=== PATIENT | female | born 1955 | race African-American/Black ===

== ENCOUNTER 2017-07-31 07:58 | Observation (INO) ==
[2017-07-31] MEDS ORDERED: 0.9 % Sodium Chloride 1,000 ML IVC ONE (08:09)
--- NOTE | 2017-07-31 08:14 | Emergency Department Note ---
Disposition Clinical Impression: TIA (transient ischemic attack) Qualifiers: Transient cerebral ischemia type: unspecified Qualified Code(s): G45.9 - Transient cerebral ischemic attack, unspecified Disposition: Transfer Other Condition: Fair Time of Disposition: 11:44 Neuro HPI - General Chief Complaint: ED Neuro Symptoms/Deficit Stated Complaint: neuro Time Seen by Provider: 07/31/17 08:08 Source: patient Mode of arrival: wheelchair Limitations: no limitations Nursing Notes Reviewed: Yes Vital Signs Reviewed: Yes - History of Present Illness HPI Narrative: Patient presents to the ED with the chief complaint of possible stroke. Patient states that she never goes to Dr. so she has no known medical problems, no previous history of CVA. States that she felt fine yesterday. She went to bed at 12 AM and woke up at 7 AM this morning. She reports that when she woke up, her vision was blurry and she just did not feel right. Even after putting her glasses on her vision improved, but still just did not feel right. She states that she got up to let her dogs out and she felt very off balance and disoriented. She was speaking to a family member and states that she knew what she wanted to say but she just could not get the words out. She did not have any focal numbness or weakness. She states that as of arriving to the ER that her symptoms are now gone and she wants to leave. However, family members with her, state that they are concerned she may have had a stroke and they would like her evaluated. Denies any fever, chills, chest pain, shortness of breath, abdominal pain, nausea, vomiting, diarrhea, rash. No changes in vision currently. Did report a mild headache yesterday but that resolved last night. - Related Data Home Medications: Home Medications Medication Instructions Recorded Confirmed Calcium Carbonate [Calcium] 500 mg PO DAILY 07/31/17 07/31/17 Cyanocobalamin (Vitamin B-12) 1,000 mcg PO DAILY 07/31/17 07/31/17 [Vitamin B12] Magnesium 30 mg PO DAILY 07/31/17 07/31/17 Allergies/Adverse Reactions: Allergies Allergy/AdvReac Type Severity Reaction Status Date / Time No Known Allergies Allergy Verified 07/31/17 09:55 Review of Systems: As reviewed in my history of present illness, otherwise negative Review of Systems: As Per HPI Constitutional: Reports: as per HPI Eyes: Reports: as per HPI ENT ED: Reports: as per HPI Past Medical History - Past Medical History Attestation: Yes The following information was validated with the patient. Source: patient Medical history: Reports: no medical history Psychiatric history: Reports: depression - Social History Smoking Status: Current every day smoker Smokeless Tobacco Status: No Alcohol use: Reports: none Drug use: Reports: none Physical Exam - General Limitations: no limitations General appearance: alert, in no apparent distress - Head Head exam: atraumatic, normocephalic, normal inspection - Eye Eye exam: Present: normal appearance, PERRL, EOMI. Absent: nystagmus - ENT ENT exam: normal exam, normal oropharynx, mucous membranes moist - Neck Neck exam: Present: normal inspection, full ROM, trachea midline - Chest Chest inspection: Present: normal inspection, symmetric chest wall rise - Respiratory Respiratory exam: Present: normal lung sounds bilaterally - Cardiovascular Cardiovascular exam: Present: regular rate, normal rhythm, normal heart sounds - Abdominal Exam Abdominal exam: Present: soft, Non-Tender. Absent: tenderness, distention, guarding, rebound, rigidity - Extremities Exam Extremities exam: Present: normal inspection, full ROM, normal capillary refill. Absent: tenderness, pedal edema - Neurological Exam Neurological exam: Present: alert, oriented X3, CN II-XII intact - Expanded Neurological Exam Patient oriented to: Present: person, place, time Speech: Present: fluid speech Cranial nerves: EOM function (II, III, IV, ): Normal, facial sensation (V): Normal, facial palsy (VII): Normal, spinal accessory function (XI): Normal, tongue deviation (XII): Normal Cerebellar function: finger to nose: Normal Cerebellar function: normal gait Motor strength - LUE: 5/5 Motor strength - RUE: 5/5 Motor strength - LLE: 5/5 Motor strength - RLE: 5/5 Upper motor neuron exam: florinda neglect: Absent bilaterally, pronator drift: Absent bilaterally, sensory extinction: Absent bilaterally Sensory exam upper extremity: light touch: Normal Sensory exam lower extremity: light touch: Normal Coma Scale Eye Opening: Spontaneous Coma Scale Motor Response: Obeys Commands Coma Scale Verbal Response: Oriented Coma Scale Total: 15 - Psychiatric Psychiatric exam: Present: normal affect, normal mood - Skin Skin exam: Present: warm, dry, intact, normal color Course Course Narrative: Patient presenting with TIA symptoms, completely resolved upon arrival. We will get a head CT in full workup. - Reevaluation(s) Reevaluation #1: Patient's head CT did not show acute stroke, chronic changes. Admitted to the hospitalist service. Reevaluation #2: Nursing staff was repeating [place] and states that the patient now has an age of 1 for left arm and left leg drift and when she sits up, feels very off balance and woozy. I contacted [facility] stroke neurologist and they did think that activating a stroke alert would be beneficial at this point and we will get him a stroke robot to see if the patient would be a TPA candidate since her symptoms did not fully resolve and now are returning as of what we are now saying is 10 AM, but has been less than 1 hour ago. This was discussed with the patient and family and they are agreeable with plan. stroke alert called. Time: 10:10 Reevaluation #3: [facility] on the stroke robot and the patient's symptoms had resolved. They did not recommend TPA, but did recommend further workup and imaging such as CT angiography of the head, neck, and then MRI. This was discussed with the family and they elected to be transferred to [facility] Vital Signs Temperature 98.0 F 07/31/17 07:59 Pulse Rate 103 07/31/17 07:59 Respiratory Rate 18 07/31/17 07:59 Blood Pressure 167/84 07/31/17 07:59 O2 Sat by Pulse Oximetry 95 07/31/17 07:59 Temperature 98.0 F 07/31/17 07:59 Pulse Rate 73 07/31/17 11:36 Respiratory Rate 17 07/31/17 11:36 Blood Pressure 161/79 07/31/17 11:36 O2 Sat by Pulse Oximetry 96 07/31/17 11:32 Oxygen Delivery Oxygen Delivery Room Air Neuro Symptoms/Deficit - Medical Records Medical records reviewed: Yes I reviewed the patient's medical records. - Lab Data Lab results reviewed: Yes I reviewed the patient's lab results. Result diagrams: 07/31/17 08:42 07/31/17 08:42 Lab Results 07/31/17 07/31/17 07/31/17 Range/Units 08:08 08:30 08:42 WBC 10.1 (4.3-11.1) K/mcL RBC 5.06 H (3.82-4.97) M/mcL Hgb 14.7 (11.5-15.4) g/dL Hct 43.5 (35.3-44.9) % MCV 86.0 (83.0-100.0) fL MCH 29.1 (28.0-33.3) pg MCHC 33.8 (31.6-35.5) g/dL RDW 12.2 (11.5-14.5) % Plt Count 257 (140-400) K/mcL MPV 9.2 L (9.4-12.4) fL Immature Gran % 0.4 (0-4) % Seg Neutrophils % 72.4 % Lymphocytes % 18.8 % Monocytes % 6.1 % Eosinophils % 1.5 % Basophils % 0.8 % Neutrophils # 7.3 (1.6-8.9) K/mcL Lymphocytes # 1.9 (0.6-4.6) K/mcL Monocytes # 0.6 (0.0-1.3) K/mcL Eosinophils # 0.2 (0.0-0.6) K/mcL Basophils # 0.1 (0.0-0.2) K/mcL PT (9.4-12.1) Seconds INR APTT (26.0-36.0) Seconds Sodium (136-145) mEq/L Potassium (3.5-5.1) mEq/L Chloride (98-107) mEq/L Carbon Dioxide (23-29) mEq/L BUN (8-23) mg/dL Creatinine (0.60-1.20) mg/dL Est GFR ( Amer) (> 60) Est GFR (Non-Af Amer) (> 60) BUN/Creatinine Ratio (6-26) Glucose (70-105) mg/dL POC Glucose 187 H (70-99) mg/dL Calculated Osmolality (280-300) Calcium (8.6-10.3) mg/dL Troponin I (< 0.04) ng/mL Urine Color Yellow (Yellow) Urine Clarity Cloudy A (Clear) Urine pH 6.0 (5.0-8.0) pH Units Ur Specific [place] 1.024 (1.010-1.025) Urine Protein 30 H (Neg-Trace) mg/dL Urine Glucose (UA) Normal (Normal) mg/dL Urine Ketones Negative (Negative) mg/dL Urine Blood Negative (Negative) Urine Nitrite Negative (Negative) Urine Bilirubin Negative (Negative) Urine Urobilinogen Normal (Normal) mg/dL Ur Leukocyte Esterase Negative (Negative) Urine Microscopic RBC 3-5 H (0-3) per hpf Urine Microscopic WBC 3-5 H (0-3) per hpf Ur Squamous Epith Cells Many H (None-Few) per lpf Urine Bacteria None Seen (None-Few) per hpf Hyaline Casts Few (None-Few) per lpf Ur Culture Indicated? NO (NO) 07/31/17 07/31/17 Range/Units 08:42 08:42 WBC (4.3-11.1) K/mcL RBC (3.82-4.97) M/mcL Hgb (11.5-15.4) g/dL Hct (35.3-44.9) % MCV (83.0-100.0) fL MCH (28.0-33.3) pg MCHC (31.6-35.5) g/dL RDW (11.5-14.5) % Plt Count (140-400) K/mcL MPV (9.4-12.4) fL Immature Gran % (0-4) % Seg Neutrophils % % Lymphocytes % % Monocytes % % Eosinophils % % Basophils % % Neutrophils # (1.6-8.9) K/mcL Lymphocytes # (0.6-4.6) K/mcL Monocytes # (0.0-1.3) K/mcL Eosinophils # (0.0-0.6) K/mcL Basophils # (0.0-0.2) K/mcL PT 11.2 (9.4-12.1) Seconds INR 1.0 APTT 28.4 (26.0-36.0) Seconds Sodium 138 (136-145) mEq/L Potassium 4.0 (3.5-5.1) mEq/L Chloride 105 (98-107) mEq/L Carbon Dioxide 30 H (23-29) mEq/L BUN 16 (8-23) mg/dL Creatinine 0.83 (0.60-1.20) mg/dL Est GFR ( Amer) > 60 (> 60) Est GFR (Non-Af Amer) > 60 (> 60) BUN/Creatinine Ratio 19 (6-26) Glucose 197 H (70-105) mg/dL POC Glucose (70-99) mg/dL Calculated Osmolality 293 (280-300) Calcium 9.8 (8.6-10.3) mg/dL Troponin I < 0.03 (< 0.04) ng/mL Urine Color (Yellow) Urine Clarity (Clear) Urine pH (5.0-8.0) pH Units Ur Specific [place] (1.010-1.025) Urine Protein (Neg-Trace) mg/dL Urine Glucose (UA) (Normal) mg/dL Urine Ketones (Negative) mg/dL Urine Blood (Negative) Urine Nitrite (Negative) Urine Bilirubin (Negative) Urine Urobilinogen (Normal) mg/dL Ur Leukocyte Esterase (Negative) Urine Microscopic RBC (0-3) per hpf Urine Microscopic WBC (0-3) per hpf Ur Squamous Epith Cells (None-Few) per lpf Urine Bacteria (None-Few) per hpf Hyaline Casts (None-Few) per lpf Ur Culture Indicated? (NO) - Radiology Data Radiology results reviewed: Yes I reviewed the patient's radiology results. - EKG Data EKG attestation: Yes I reviewed and interpreted this EKG. EKG results narrative: Sinus rhythm, rate 94, OR interval 180, QRS 89, QTC 396, normal axis, no acute ischemic changes, no previous available NIH Stroke Scale - Level of Consciousness LOC: Alert - LOC Questions LOC Questions: Answers both correctly - LOC Commands LOC Commands: Performs both correctly - Best Gaze Best Gaze: Normal - Visual Visual: No visual loss - Facial Palsy Facial Palsy: Normal - Motor Arms Motor Arm-Left: No drift for 10 seconds Motor Arm-Right: No drift for 10 seconds - Motor Legs Motor Leg-Left: No drift for 5 seconds Motor Leg-Right: No drift for 5 seconds - Limb Ataxia Limb Ataxia: Normal, No Ataxia - Sensory Sensory: Normal - Best Language Best Language: No aphasia - Dysarthria Dysarthria: Normal - Extinction and Inattention Extinction and Inattention: Normal - NIHSS Total Score NIHSS Total Score: 0 TPA Checklist - LKW: 3-4.5 hrs Add. Warnings/Precautions Patient/family understanding: The patient/family members have been counseled and understood the risk, benefit , and alternatives of treatment. Critical Care Time Critical Care Time: Yes Total Critical Care Time: 45 Attestation: I personally spent 45 minutes devoted to the care of this critically ill patient. This time excludes the time for billable procedures.
[2017-07-31 08:40] LABS: Bilirubin,Urine Negative (Negative); Blood,Urine Negative (Negative); Clarity,Urine Cloudy (Clear); Color,Urine Yellow (Yellow); Glucose,Urine (UA) Normal (Normal); Ketones,Urine Negative (Negative); Leukocyte Esterase,Urine Negative (Negative); Nitrite,Urine Negative (Negative); Protein,Urine 30 mg/dL (Neg-Trace); Specific Gravity,Urine 1.024 (1.010-1.025); Urobilinogen,Urine Normal (Normal)
[2017-07-31 08:43] LABS: Bacteria,Urine None Seen per hpf (None-Few); Hyaline Casts,Urine Few per lpf (None-Few); Squamous Epithelial Cell,Urine Many per lpf (None-Few)
[2017-07-31 09:06] LABS: Basophils # 0.1 K/mcL (0.0-0.2); Basophils % 0.8 %; Eosinophils # 0.2 K/mcL (0.0-0.6); Eosinophils % 1.5 %; Hematocrit 43.5 % (35.3-44.9); Hemoglobin 14.7 g/dL (11.5-15.4); Immature Granulocytes % 0.4 % (0-4); Lymphocytes # 1.9 K/mcL (0.6-4.6); Lymphocytes % 18.8 %; Mean Corpuscular HGB Conc 33.8 g/dL (31.6-35.5); Mean Corpuscular Hemoglobin 29.1 pg (28.0-33.3); Mean Platelet Volume 9.2 fL (9.4-12.4); Monocytes # 0.6 K/mcL (0.0-1.3); Monocytes % 6.1 %; Neutrophils # 7.3 K/mcL (1.6-8.9); Platelet Count 257 K/mcL (140-400); Red Blood Count 5.06 M/mcL (3.82-4.97); Red Cell Distribution Width 12.2 % (11.5-14.5); Segmented Neutrophils % 72.4 %
[2017-07-31 09:13] LABS: Prothrombin Time 11.2 Seconds (9.4-12.1)
[2017-07-31 09:14] LABS: BUN/Creatinine Ratio 19 (6-26); Blood Urea Nitrogen 16 mg/dL (8-23); Calcium 9.8 mg/dL (8.6-10.3); Carbon Dioxide 30 mEq/L (23-29); Chloride 105 mEq/L (98-107); Glucose 197 mg/dL (70-105); Osmolality,Calculated 293 (280-300); Sodium 138 mEq/L (136-145); Troponin I < 0.03 ng/mL (< 0.04); eGFR For African Americans > 60 (> 60); eGFR For Non-African Americans > 60 (> 60)
[2017-07-31 09:16] LABS: Activated Partial Thrombo Time 28.4 Seconds (26.0-36.0)
--- NOTE | 2017-07-31 09:30 | Emergency Department Note ---
Disposition Clinical Impression: TIA (transient ischemic attack) Qualifiers: Transient cerebral ischemia type: unspecified Qualified Code(s): G45.9 - Transient cerebral ischemic attack, unspecified Disposition: Still a Patient Condition: Fair Instructions: Transient Ischemic Attack (ED) Forms: ED Satisfaction Letter Time of Disposition: 09:30 General Adult HPI - General Chief complaint: ED Neuro Symptoms/Deficit Stated complaint: neuro Time Seen by Provider: 07/31/17 08:08 Source: patient Mode of arrival: wheelchair Limitations: no limitations Nursing Notes Reviewed: Yes Vital Signs Reviewed: Yes - History of Present Illness Pain Scale: 0 - Related Data Allergies Allergy/AdvReac Type Severity Reaction Status Date / Time No Known Allergies Allergy Verified 07/31/17 07:59 Constitutional: Reports: as per HPI Eyes: Reports: as per HPI ENT ED: Reports: as per HPI Past Medical History - Past Medical History Medical history: Reports: no medical history Psychiatric history: Reports: depression - Social History Smoking Status: Current every day smoker Smokeless Tobacco Status: No Alcohol use: Reports: none Drug use: Reports: none Physical Exam - General Limitations: no limitations General appearance: alert, in no apparent distress Course Vital Signs Temperature 98.0 F 07/31/17 07:59 Pulse Rate 103 07/31/17 07:59 Respiratory Rate 18 07/31/17 07:59 Blood Pressure 167/84 07/31/17 07:59 O2 Sat by Pulse Oximetry 95 07/31/17 07:59 Temperature 98.0 F 07/31/17 07:59 Pulse Rate 88 07/31/17 08:43 Respiratory Rate 17 07/31/17 08:43 Blood Pressure 155/81 07/31/17 08:43 O2 Sat by Pulse Oximetry 97 07/31/17 08:43 Oxygen Delivery Oxygen Delivery Room Air Medical Decision Making - Lab Data Result diagrams: 07/31/17 08:42 07/31/17 08:42 Lab Results 07/31/17 07/31/17 07/31/17 Range/Units 08:08 08:30 08:42 WBC 10.1 (4.3-11.1) K/mcL RBC 5.06 H (3.82-4.97) M/mcL Hgb 14.7 (11.5-15.4) g/dL Hct 43.5 (35.3-44.9) % MCV 86.0 (83.0-100.0) fL MCH 29.1 (28.0-33.3) pg MCHC 33.8 (31.6-35.5) g/dL RDW 12.2 (11.5-14.5) % Plt Count 257 (140-400) K/mcL MPV 9.2 L (9.4-12.4) fL Immature Gran % 0.4 (0-4) % Seg Neutrophils % 72.4 % Lymphocytes % 18.8 % Monocytes % 6.1 % Eosinophils % 1.5 % Basophils % 0.8 % Neutrophils # 7.3 (1.6-8.9) K/mcL Lymphocytes # 1.9 (0.6-4.6) K/mcL Monocytes # 0.6 (0.0-1.3) K/mcL Eosinophils # 0.2 (0.0-0.6) K/mcL Basophils # 0.1 (0.0-0.2) K/mcL PT (9.4-12.1) Seconds INR APTT (26.0-36.0) Seconds Sodium (136-145) mEq/L Potassium (3.5-5.1) mEq/L Chloride (98-107) mEq/L Carbon Dioxide (23-29) mEq/L BUN (8-23) mg/dL Creatinine (0.60-1.20) mg/dL Est GFR ( Amer) (> 60) Est GFR (Non-Af Amer) (> 60) BUN/Creatinine Ratio (6-26) Glucose (70-105) mg/dL POC Glucose 187 H (70-99) mg/dL Calculated Osmolality (280-300) Calcium (8.6-10.3) mg/dL Troponin I (< 0.04) ng/mL Urine Color Yellow (Yellow) Urine Clarity Cloudy A (Clear) Urine pH 6.0 (5.0-8.0) pH Units Ur Specific Biggs 1.024 (1.010-1.025) Urine Protein 30 H (Neg-Trace) mg/dL Urine Glucose (UA) Normal (Normal) mg/dL Urine Ketones Negative (Negative) mg/dL Urine Blood Negative (Negative) Urine Nitrite Negative (Negative) Urine Bilirubin Negative (Negative) Urine Urobilinogen Normal (Normal) mg/dL Ur Leukocyte Esterase Negative (Negative) Urine Microscopic RBC 3-5 H (0-3) per hpf Urine Microscopic WBC 3-5 H (0-3) per hpf Ur Squamous Epith Cells Many H (None-Few) per lpf Urine Bacteria None Seen (None-Few) per hpf Hyaline Casts Few (None-Few) per lpf Ur Culture Indicated? NO (NO) 07/31/17 07/31/17 Range/Units 08:42 08:42 WBC (4.3-11.1) K/mcL RBC (3.82-4.97) M/mcL Hgb (11.5-15.4) g/dL Hct (35.3-44.9) % MCV (83.0-100.0) fL MCH (28.0-33.3) pg MCHC (31.6-35.5) g/dL RDW (11.5-14.5) % Plt Count (140-400) K/mcL MPV (9.4-12.4) fL Immature Gran % (0-4) % Seg Neutrophils % % Lymphocytes % % Monocytes % % Eosinophils % % Basophils % % Neutrophils # (1.6-8.9) K/mcL Lymphocytes # (0.6-4.6) K/mcL Monocytes # (0.0-1.3) K/mcL Eosinophils # (0.0-0.6) K/mcL Basophils # (0.0-0.2) K/mcL PT 11.2 (9.4-12.1) Seconds INR 1.0 APTT 28.4 (26.0-36.0) Seconds Sodium 138 (136-145) mEq/L Potassium 4.0 (3.5-5.1) mEq/L Chloride 105 (98-107) mEq/L Carbon Dioxide 30 H (23-29) mEq/L BUN 16 (8-23) mg/dL Creatinine 0.83 (0.60-1.20) mg/dL Est GFR ( Amer) > 60 (> 60) Est GFR (Non-Af Amer) > 60 (> 60) BUN/Creatinine Ratio 19 (6-26) Glucose 197 H (70-105) mg/dL POC Glucose (70-99) mg/dL Calculated Osmolality 293 (280-300) Calcium 9.8 (8.6-10.3) mg/dL Troponin I < 0.03 (< 0.04) ng/mL Urine Color (Yellow) Urine Clarity (Clear) Urine pH (5.0-8.0) pH Units Ur Specific [place]gs (1.010-1.025) Urine Protein (Neg-Trace) mg/dL Urine Glucose (UA) (Normal) mg/dL Urine Ketones (Negative) mg/dL Urine Blood (Negative) Urine Nitrite (Negative) Urine Bilirubin (Negative) Urine Urobilinogen (Normal) mg/dL Ur Leukocyte Esterase (Negative) Urine Microscopic RBC (0-3) per hpf Urine Microscopic WBC (0-3) per hpf Ur Squamous Epith Cells (None-Few) per lpf Urine Bacteria (None-Few) per hpf Hyaline Casts (None-Few) per lpf Ur Culture Indicated? (NO) Attestation Statement - Attestation Attestation: I, Barney Gao, examined this patient and my medical decision-making was reviewed with the BAND MANAGER/PA/Advanced Practice Nurse/Resident Physician. I agree with the documented findings, disposition and treatment plan as described except to the extent set forth below. 62-year-old female presents emergency Department with concerns of neurologic deficit prior to arrival. Patient states she would sleep at baseline and woke with blurred vision in the right eye, left facial droop, unsteadiness with walking and slurred speech. Patient states that the symptoms improved over the period of an hour and are now back to baseline in the emergency department. No history of CVA in the past. Patient denies a history of comorbidities however she has not been evaluated by a primary care provider in many years. Patient does not have focal neurologic deficits on the evaluation emergency department. We will obtain CT of the head and complete a TIA workup. Patient will likely be admitted to the hospital for further care and evaluation of likely TIA.
[2017-07-31] MEDS ORDERED: Aspirin 325 MG TABLET PO ONE (10:28)
[2017-07-31] MEDS ORDERED: traMADol 50 MG TABLET PO PRN (13:13)
[2017-07-31] MEDS ORDERED: Naloxone 0.4 MG/ML INJ IVP PRN (13:13)
[2017-07-31] MEDS ORDERED: Acetaminophen 325 MG TABLET PO PRN (13:13)
--- NOTE | 2017-07-31 13:30 | Internal Med History&Physical ---
<Mansi Boyd - Last Filed: 07/31/17 13:56> Date of Encounter: 07/31/17 Time of Encounter: 13:30 Internal Medicine - H&P: HPI Admitted From: Home Plans for Post Hospital Care: Home History of present illness: Patient states that she never goes to Dr. so she has no known medical problems, no previous history of CVA. States that she felt fine yesterday. She went to bed at 12 AM and woke up at 7 AM this morning. She reports that when she woke up, her vision was blurry and she just did not feel right. Even after putting her glasses on her vision improved, but still just did not feel right. She states that she got up to let her dogs out and she felt very off balance and disoriented. She was speaking to a family member and states that she knew what she wanted to say but she just could not get the words out. She did not have any focal numbness or weakness. She states that as of arriving to the ER that her symptoms are now gone and she wants to leave. However, family members with her, state that they are concerned she may have had a stroke and they would like her evaluated. Denies any fever, chills, chest pain, shortness of breath, abdominal pain, nausea, vomiting, diarrhea, rash. No changes in vision currently. Did report a mild headache yesterday but that resolved last night. Past Med Surg Social Fam HX - Past Medical History Medical history: no medical history Psychiatric history: depression - Social History Smoking Status: Current every day smoker Smokeless Tobacco Status: No Alcohol use: none Drug use: none Internal Medicine - H&P: Meds Calcium Carbonate [Calcium] 500 mg PO DAILY 07/31/17 [History] Cyanocobalamin (Vitamin B-12) [Vitamin B12] 1,000 mcg PO DAILY 07/31/17 [History ] Magnesium 30 mg PO DAILY 07/31/17 [History] 3 Allergy/AdvReac Type Severity Reaction Status Date / Time No Known Allergies Allergy Verified 07/31/17 09:55 All Systems PM: A 10-system review of systems was performed and is negative for pertinent findings except as documented above in the HPI. - Constitutional Constitutional: no chills, no fever(s), no night sweats - EENT Eyes: as per HPI - Cardiovascular Cardiovascular ROS IM: no chest pain, no diaphoresis, no dyspnea, no lightheadedness, no palpitations, no syncope - Respiratory Respiratory: no cough, no dyspnea, no wheezing, no excessive phlegm production - Gastrointestinal Gastrointestinal: no abdominal pain, no diarrhea, no hematemesis, no hematochezia, no melena, no nausea, no vomiting - Genitourinary Genitourinary: no change in urinary stream, no dysuria, no flank pain, no hematuria - Neurological Neurological ROS: as per HPI - Constitutional Vitals: Temp Pulse Resp BP Pulse Ox 98.0 F 73 15 149/72 96 07/31/17 07:59 07/31/17 11:36 07/31/17 12:49 07/31/17 12:49 07/31/17 11:32 General appearance: Present: A&O X 3 - Head Head exam: Present: atraumatic, normocephalic - Eye Eye exam: Present: PERRL, conjuntiva pink, sclera anicteric Pupils: Present: PERRL - Neck Neck exam general surgery: Present: supple, trachea midline. Absent: lymphadenopathy - Respiratory Respiratory exam: Present: CTAB. Absent: accessory muscle use, rales, rhonchi, wheezes - Cardiovascular Cardiovascular exam: Present: RRR, +S1, +S2. Absent: diastolic murmur, gallop, rubs, systolic murmur - GI/Abdominal GI/Abdominal exam: Present: normal bowel sounds, soft, no peritoneal signs. Absent: distended, tenderness - Extremities Exam Extremities exam: Present: warm, radial pulses palpable and symmetrical. Absent : calf tenderness, cyanotic, pedal edema - Neurological Exam Neurological exam: Present: CN II-XII intact, oriented X3, no focal deficits. Absent: pronater drift, facial droop, speech deficit - Skin Skin exam: Present: dry, intact Internal Med - H&P Results - Labs CBC & Chem 7: 07/31/17 08:42 07/31/17 08:42 - Assessment and plan (1) TIA (transient ischemic attack) Status: Acute Assessment and plan: - CT head revealed prior stroke at the right parietal lobe. will order lipid panel, MRI/MRA, and TTE to further explore underlying etiology. - continue asa, add plavix. - BP elevated, will permit high BP and treat if SBP>210 and DBP>120 for the first 24 hours, will aggressively treat if BP still high after 24 hours. - Neurology consult. Qualifiers: Transient cerebral ischemia type: unspecified Qualified Code(s): G45.9 - Transient cerebral ischemic attack, unspecified - Time Spent With Patient Total time spent is greater than 50% in coordination of care (as documented) at patient's floor/unit and/or counseling patient: Greater than 35 minutes <Mariza Simeon - Last Filed: 07/31/17 18:31> Date of Encounter: 07/31/17 Internal Medicine - H&P: HPI History of present illness: Ms. Muse is a 62 year old female All Systems PM: A 10-system review of systems was performed and is negative for pertinent findings except as documented above in the HPI. - Constitutional Vitals: Temp Pulse Resp BP Pulse Ox 98.0 F 73 15 149/72 96 07/31/17 07:59 07/31/17 11:36 07/31/17 12:49 07/31/17 12:49 07/31/17 11:32 Internal Med - H&P Results - Labs CBC & Chem 7: 07/31/17 08:42 07/31/17 08:42 - Attending Attestation I examined this patient and my medical decision-making was reviewed with the Resident Physician. I agree with the documented findings, disposition and treatment plan as described except to the extent set forth below. - Time Spent With Patient Total time spent is greater than 50% in coordination of care (as documented) at patient's floor/unit and/or counseling patient:
[2017-07-31] MEDS ORDERED: *HR* Heparin 5,000 UNIT/ML VIAL SQ SCH (18:00)
[2017-08-01] MEDS ORDERED: Aspirin 81 MG TAB.CHEW PO SCH (09:00)
[2017-08-01] MEDS ORDERED: Cyanocobalamin (B-12) 1,000 MCG TABLET PO SCH (09:00)
[2017-08-01] MEDS ORDERED: MAGNESIUM 30 MG PO SCH (09:00)
--- NOTE | 2017-08-01 22:53 | Electrocardiograph Report ---
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
--- NOTE | 2017-08-02 18:17 | Discharge Summary ---
Date of Encounter: 07/31/17 Time of Encounter: 09:10 - Discharge Diagnosis (1) TIA (transient ischemic attack) Priority: Primary Status: Inactive Qualifiers: Transient cerebral ischemia type: unspecified Qualified Code(s): G45.9 - Transient cerebral ischemic attack, unspecified Hospital course: Ms. Muse is a 62 year old female presented with TIA symptoms. Patient and family requested to be transferred to [facility]. [facility] hospital contact and the patient was accepted. Report was called to [facility]. Patient will be transferred by ambulance. Time spent discussing smoking cessation with patient: more than 10 minutes - Time Spent with Patient Total time spent providing and/or coordinating discharge services: Greater than 30 minutes - Discharge Medications Home Medications: Calcium Carbonate [Calcium] 500 mg PO DAILY 07/31/17 [History] Cyanocobalamin (Vitamin B-12) [Vitamin B12] 1,000 mcg PO DAILY 07/31/17 [History ] Magnesium 30 mg PO DAILY 07/31/17 [History] Allergies/Adverse Reactions: 3 Allergy/AdvReac Type Severity Reaction Status Date / Time No Known Allergies Allergy Verified 07/31/17 09:55 Date of admission: 07/31/17 10:12 Primary care physician: PCP NONE Anticipated date of discharge: 07/31/17 - Constitutional Vitals: Temp Pulse Resp BP Pulse Ox 98.0 F 73 15 149/72 96 07/31/17 07:59 07/31/17 11:36 07/31/17 12:49 07/31/17 12:49 07/31/17 11:32 General appearance: Present: A&O X 3 Exam: PHYSICAL EXAMINATION: GENERAL APPEARANCE: The patient is alert, oriented and in no acute distress. HEENT: Head is normocephalic. The sinuses are nontender. Pupils are equal and reactive. The nares are patent. Oropharynx clear without lesions. NECK: Supple without lymphadenopathy. HEART: Regular rate and rhythm. LUNGS: No crackles or wheezes are heard. ABDOMEN: Soft, nontender, nondistended with good bowel sounds heard. Inguinal area is normal. EXTREMITIES: Without cyanosis, clubbing or edema. NEUROLOGICAL: Gross nonfocal. SKIN: Warm and dry without any rash. - Patient Status Disposition: Transfer Critical Access Hosp Condition: Fair Functional capacity at discharge: wheelchair bound Overall status at discharge: patient is not back to baseline - Discharge Instructions Follow Up With: NONE,PCP [Primary Care Provider] - Sandi Acharya [Family Provider] - - Diet and Activity Activity: increase activity as tolerated Diet: other
== END 2017-07-31 13:22 | disposition critical access hospital (66) | DRG 69 ==
LOC: EMEROO 07:58 → 2SOUTHHOLD 07:58 → OBSVTOIN 10:12 → INTOOBSV 10:12 → 2SOUTHHOLD 13:00
PROVIDERS: ADMIT Internal Medicine Cardiovascular Disease; ATTEND Registered Nurse